=== PATIENT | female | born 1985 | race Caucasian/White ===

== ENCOUNTER 2016-05-29 13:11 | Emergency (ER) | payer OTHER ==
--- NOTE | 2016-05-29 14:10 | UC ---
Respiratory Complaint HPI - HPI Summary HPI Summary: 31 year old female presents with post-nasal drip, cough with green mucus, SOB on exertion, bronchospasm induced by coughing, low-grade temperature increase of 99F which is controlled with Tylenol. Denies rash, and wheezing. Reports chest tightness. Hx of asthma. - History of Current Complaint Chief Complaint: UCRespiratory Stated Complaint: THROAT,EARS Time Seen by Provider: 05/29/16 13:29 Hx Obtained From: Patient Hx Last Menstrual Period: 05/08/16 ?: No Onset/Duration: Gradual Onset Timing: Intermittent Episodes Severity Initially: Mild Character: Sputum Description: - Green mucus production Aggravating Factors: Deep Breaths Alleviating Factors: Bronchodilator Associated Signs And Symptoms: Positive: Fever, Chills, URI, Nasal Congestion, Sinus Discomfort Related History: Seasonal Allergies - Risk Factors Pulmonary Embolism Risk Factors: Negative Cardiac Risk Factors: Negative Pseudomonas Risk Factors: Negative Tuberculosis Risk Factors: Negative - Allergies/Home Medications Allergies/Adverse Reactions: Allergies Allergy/AdvReac Type Severity Reaction Status Date / Time Bee Venom Allergy Swelling Verified 05/29/16 13:30 Home Medications: Home Medications DULoxetine DR CAP* [Cymbalta CAP*] 60 mg PO DAILY 05/29/16 [History Confirmed ] Linaclotide (NF) [Linzess (NF)] 290 mcg PO EVERY OTHER DAY 05/29/16 [History Confirmed 05/29/16] Linaclotide [Linzess] 145 mcg PO EVERY OTHER DAY 05/29/16 [History Confirmed 11/07] PMH/Surg Hx/FS Hx/Imm Hx Previously Healthy: Yes Endocrine History Of: 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 Tonsillectomy, wisdom teeth. Thyroidectomies. 2 vaginal delivery. LYMPH NODE REMOVAL LEFT JAW. CYST REMOVED FROM LEFT ELBOW. TONSILAR REMNANT REMOVED--2016. CYST REMOVED FROM FINGER 3L - Family History Known Family History: Positive: Hypertension - Social History Occupation: Unemployed Lives: With Family Alcohol Use: Occasionally Substance Use Type: None Smoking Status (MU): Never Smoked Tobacco Have You Smoked in the Last Year: No - Immunization History Most Recent Influenza Vaccination: 06/2014 Review of Systems Constitutional: Fever, Chills, Fatigue Skin: Negative Eyes: Negative ENT: Ear Ache, Nasal Discharge Respiratory: Shortness Of Breath, Cough Cardiovascular: Negative Gastrointestinal: Negative Genitourinary: Negative Motor: Negative Neurovascular: Negative Musculoskeletal: Arthralgia - Chronic condition Neurological: Negative Psychological: Negative All Other Systems Reviewed And Are Negative: Yes Physical Exam Triage Information Reviewed: Yes Appearance: Well-Appearing Vital Signs: Initial Vital Signs Temp 99 F 05/29/16 13:24 Pulse 69 05/29/16 13:24 Resp 16 05/29/16 13:24 BP 112/66 05/29/16 13:24 Pulse Ox 100 05/29/16 13:24 Vital Signs Reviewed: Yes Eye Exam: Normal Eyes: Positive: Conjunctiva Clear ENT Exam: Normal ENT: Positive: Other: - Left TM retracted Dental Exam: Normal Neck exam: Normal Neck: Positive: Supple, Tenderness @ - cervical lymph nodes Respiratory: Positive: Lungs clear, Normal breath sounds, No accessory muscle use, Decreased breath sounds - Bilateral lower lobes. Negative: Wheezing Cardiovascular Exam: Normal Cardiovascular: Positive: RRR, No Murmur, Pulses Normal Abdominal Exam: Normal Abdomen Description: Positive: Nontender Bowel Sounds: Positive: Present Musculoskeletal Exam: Normal Musculoskeletal: Positive: Strength Intact Neurological Exam: Normal Neurological: Positive: Alert Psychological Exam: Normal Psychological: Positive: Normal Response To Family Skin Exam: Normal UC Diagnostic Evaluation - Laboratory O2 Sat by Pulse Oximetry: 100 Respiratory Course/Dx - Differential Dx/Diagnosis Provider Diagnoses: URI, likely viral Discharge - Discharge Plan Condition: Stable Disposition: HOME Discharge Disposition Comment: URI Prescriptions: Albuterol HFA INHALER* [Ventolin HFA Inhaler*] 1 - 2 puff INH Q6H PRN #1 mdi PRN Reason: wheeze, cough predniSONE TAB* [Deltasone TAB*] 50 mg PO DAILY #3 tab Patient Education Materials: Upper Respiratory Infection (ED) Referrals: Kranthi Gusman MD [Primary Care Provider] -
[2016-05-29 14:15] VITALS: BP 112/66
== END 2016-05-29 14:29 | disposition home or self-care (01) ==
LOC: UCCORT 13:11
DX: J06.9 Acute upper respiratory infection, unspecified (principal)
CPT/HCPCS: 99212; G0463

== ENCOUNTER 2016-06-10 15:21 | Emergency (ER) | payer OTHER ==
--- NOTE | 2016-06-10 16:04 | UC ---
UC General HPI - HPI Summary HPI Summary: Patient is feverish, congested SOB, sore throat and nasal congestion. body aches for 2 days. - History of Current Complaint Chief Complaint: UCGeneralIllness Stated Complaint: CONGESTION/CHILLS/BODY ACHES Time Seen by Provider: 06/10/16 15:46 Hx Obtained From: Patient Onset/Duration: Sudden Onset, Lasting Days Timing: Constant Onset Severity: Severe Current Severity: Severe Pain Intensity: 9 Associated Signs & Symptoms: Positive: Chest Pain, Fever, Headache, SOB, Wheezing - Allergy/Home Medications Allergies/Adverse Reactions: Allergies Allergy/AdvReac Type Severity Reaction Status Date / Time Bee Venom Allergy Swelling Verified 06/10/16 15:37 Home Medications: Home Medications Chlorpheniramine-Phenylephrine [Advil Allergy & Congestio] 1 tab PO ONCE [History Confirmed 06/10/16] PMH/Surg Hx/FS Hx/Imm Hx Previously Healthy: Yes Endocrine History Of: 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 Tonsillectomy, wisdom teeth. Thyroidectomies. 2 vaginal delivery. LYMPH NODE REMOVAL LEFT JAW. CYST REMOVED FROM FINGER 3L - Family History Known Family History: Positive: Hypertension - Social History Alcohol Use: Occasionally Substance Use Type: None Smoking Status (MU): Never Smoked Tobacco Have You Smoked in the Last Year: No - Immunization History Most Recent Influenza Vaccination: 06/2014 Review of Systems Constitutional: Fever, Chills, Fatigue Skin: Negative Eyes: Negative ENT: Sore Throat, Ear Ache, Nasal Discharge Respiratory: Shortness Of Breath, Cough Cardiovascular: Negative Gastrointestinal: Negative Genitourinary: Negative Motor: Negative Neurovascular: Negative Musculoskeletal: Myalgia Neurological: Headache Psychological: Negative All Other Systems Reviewed And Are Negative: Yes Physical Exam Triage Information Reviewed: Yes Appearance: Well-Nourished, Ill-Appearing, Pain Distress Vital Signs: Initial Vital Signs Temp 100.4 F 06/10/16 15:40 Pulse 98 06/10/16 15:40 Resp 16 06/10/16 15:40 BP 125/69 06/10/16 15:40 Pulse Ox 100 06/10/16 15:40 Vital Signs Reviewed: Yes Eye Exam: Normal Eyes: Positive: Conjunctiva Inflamed ENT Exam: Normal ENT: Positive: Pharyngeal erythema, Nasal congestion, Nasal drainage, TMs normal , Tonsillar swelling, Muffled/hoarse voice Dental Exam: Normal Neck exam: Normal Neck: Positive: Supple, Nontender, No Lymphadenopathy Respiratory Exam: Normal Respiratory: Positive: Chest non-tender, No respiratory distress, No accessory muscle use, Decreased breath sounds, Wheezing, Inspiration Cardiovascular Exam: Normal Cardiovascular: Positive: RRR, No Murmur, Pulses Normal Abdominal Exam: Normal Abdomen Description: Positive: Nontender, No Organomegaly, Soft Bowel Sounds: Positive: Present Musculoskeletal Exam: Normal Musculoskeletal: Positive: Strength Intact, ROM Intact, No Edema Neurological Exam: Normal Neurological: Positive: Alert, Muscle Tone Normal Psychological Exam: Normal Skin Exam: Normal Course/Dx - Course Course Of Treatment: hx obtained, exam performed, spacer provided to use her ventolin more effectively, flu swab obtained, prednisone prescribed. - Differential Dx - Multi-Symptom Provider Diagnoses: Bronchitis Discharge - Discharge Plan Condition: Stable Disposition: HOME Prescriptions: predniSONE TAB* [Deltasone TAB*] 50 mg PO DAILY #5 tab Patient Education Materials: Acute Bronchitis (ED) Additional Instructions: increase fluid intake, get plenty of rest ibuprofen for pain and take the medication as prescibed. COLD CARE TEA!!! to soothe your throat.
[2016-06-10 16:14] VITALS: BP 125/69
== END 2016-06-10 16:39 | disposition home or self-care (01) ==
LOC: UCCORT 15:21
DX: J40 Bronchitis, not specified as acute or chronic (principal)
CPT/HCPCS: 87502; 99212; G0463

== ENCOUNTER 2016-06-25 13:53 | Emergency (ER) | payer OTHER | END 2016-06-25 16:14 | disposition left against medical advice (07) | LOC: UCCORT 13:53 | DX: R09.81 Nasal congestion (principal); Z53.21 Procedure and treatment not carried out due to patient leaving prior to being seen by health care provider ==

== ENCOUNTER 2016-06-26 12:36 | Emergency (ER) | payer OTHER ==
[2016-06-26 14:58] VITALS: BP 104/69
--- NOTE | 2016-06-26 15:06 | UC ---
Throat Pain/Nasal [place] HPI - HPI Summary HPI Summary: complaint of sore throat nasal congestion cough that started 4 weeks ago dx with bronchitis several times has been on several courses pf prednisone once she is off prednisone symtoms return cough with purulent sputum right ear pain frequent headaches, sinus pressure in her face taking ibuprofen with minimal relief fever of 101 yesterday has been using inhaler twice a day for a week denies N/V/D , shortness of breath - History of Current Complaint Chief Complaint: UC Stated Complaint: EARS/ST/SINUS Time Seen by Provider: 06/26/16 15:00 Hx Obtained From: Patient Hx Last Menstrual Period: 06/01/16 - Allergies/Home Medications Allergies/Adverse Reactions: Allergies Allergy/AdvReac Type Severity Reaction Status Date / Time Bee Venom Allergy Swelling Verified 06/26/16 14:46 PMH/Surg Hx/FS Hx/Imm Hx Previously Healthy: Yes Endocrine History Of: Reports: Thyroid Disease Denies: Diabetes - PRE DIABETIC Cardiovascular History Of: Denies: Cardiac Disorders, Pacemaker/ICD Respiratory History Of: Reports: Asthma - SPORTS INDUCED - Surgical History Surgical History: Yes Surgery Procedure, Year, and Place: Kidney Stones Removed. Tonsillectomy,AND 2016 TONSIL REMINENT REMOVED. wisdom teeth. Thyroidectomies. 2 vaginal delivery. LYMPH NODE REMOVAL LEFT JAW. CYST REMOVED FROM FINGER -Lt MIDDLE - Family History Known Family History: Positive: Hypertension Negative: Cardiac Disease, Diabetes - Social History Occupation: Employed Full-time Lives: With Family Alcohol Use: Occasionally Substance Use Type: None Smoking Status (MU): Never Smoked Tobacco Have You Smoked in the Last Year: No - Immunization History Most Recent Influenza Vaccination: FALL 2015 Review of Systems Constitutional: Fever Skin: Negative Eyes: Negative ENT: Sore Throat, Nasal Discharge Respiratory: Cough Cardiovascular: Negative Gastrointestinal: Negative Genitourinary: Negative Motor: Negative Neurovascular: Negative Musculoskeletal: Negative Neurological: Negative Psychological: Negative All Other Systems Reviewed And Are Negative: Yes Physical Exam Triage Information Reviewed: Yes Appearance: No Pain Distress, Well-Nourished Vital Signs: Initial Vital Signs Temp 98.4 F 06/26/16 14:50 Pulse 68 06/26/16 14:50 Resp 18 06/26/16 14:50 BP 104/69 06/26/16 14:50 Pulse Ox 96 06/26/16 14:50 Vital Signs Reviewed: Yes Eyes: Positive: Conjunctiva Clear ENT: Positive: Pharyngeal erythema, Nasal congestion, Nasal drainage, TMs normal , Other: - frontal sinus tenderness Neck: Positive: No Lymphadenopathy Respiratory: Positive: No respiratory distress, No accessory muscle use, Rhonchi - rhonchi LLL, Wheezing Cardiovascular: Positive: RRR, No Murmur, Pulses Normal Abdomen Description: Positive: Nontender, Soft Bowel Sounds: Positive: Present Musculoskeletal: Positive: No Edema Neurological: Positive: Alert Psychological Exam: Normal Skin Exam: Normal Throat Pain/Nasal Course/Dx - Course Course Of Treatment: exam completed. will treat with zpack and prednisone - followup with PCP - Differential Dx/Diagnosis Differential Diagnosis/HQI/PQRI: Pharyngitis, Sinusitis, URI, Other - asthma exacerbation Provider Diagnoses: asthma exacerbation Discharge - Discharge Plan Condition: Stable Disposition: HOME Prescriptions: Azithromycin TAB* [Zithromax TAB (Z-TAMMY) 250 mg #6 tabs] 2 tab PO .TODAY, THEN 1 DAILY #1 tammy predniSONE TAB* [Deltasone TAB*] 50 mg PO DAILY #5 tab Patient Education Materials: Asthma (ED) Referrals: Kranthi Gusman MD [Primary Care Provider] - Additional Instructions: Please take antibiotic as directed Use your albuterol inhaler every 4-6 hours when needed for wheezing, shortness of breath or uncontrolled coughing. Increase fluids and rest Take acetaminophen or ibuprofen for fever or pain Please review your discharge instructions. If your symptoms do not improve please call your primary care provider or return to urgent care.
== END 2016-06-26 15:28 | disposition home or self-care (01) ==
LOC: UCCORT 12:36
DX: J45.901 Unspecified asthma with (acute) exacerbation (principal); H92.01 Otalgia, right ear; R51 Headache; E07.9 Disorder of thyroid, unspecified; J45.990 Exercise induced bronchospasm; Z91.030 Bee allergy status
CPT/HCPCS: 99212; G0463

== ENCOUNTER → 2016-07-03 10:43 | Day surgery (SDC) | payer OTHER ==
--- NOTE | 2016-07-01 18:07 | HP ---
PREOPERATIVE HISTORY AND PHYSICAL: DATE OF OFFICE VISIT/ENCOUNTER: 07/01/16 DATE OF SURGERY/ADMISSION: 07/03/16 [facility] ATTENDING SURGEON: Lo Rivera MD PROCEDURE: Excision mass, left ring finger. CHIEF COMPLAINT: Mass, left ring finger. HISTORY OF PRESENT ILLNESS: This is a 31-year-old female who has a painful mass on the volar aspect of her left ring finger at her MP flexion crease. It has been present for several months. She has a history of having one of these removed from her left middle finger many years ago by Dr. Meek. She has had an MRI recently that showed a ganglion cyst on her left ring finger flexor tendon sheath. 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 She denies any numbness or tingling associated with it. She denies injury to this finger. She would like to have the cyst surgically excised. PAST MEDICAL HISTORY: 1. Prediabetes. 2. Asthma. 3. Hypermobility syndrome. 4. History of thyroid cancer/Rena disease. PAST SURGICAL HISTORY: 1. Thyroidectomy. 2. Kidney stone removal. 3. Tonsillectomy. 4. [place] teeth extraction. 5. Excision of cyst, left middle finger. 6. Excision of cyst, jaw. CURRENT MEDICATIONS: 1. Duloxetine HCl 60 mg daily. 2. Gabapentin 100 mg daily. 3. Linzess 290 mcg daily. 4. Magnesium 400 mg daily. 5. [place]-3 1000 mg b.i.d. 6. ProAir inhaler 2 puffs q.4 hours p.r.n. 7. Probiotic daily. 8. Tirosint 137 mcg daily. 9. Vitamin B12, 112 mcg daily. 10. Vitamin D3 5000 units daily. ALLERGIES: ADHESIVE TAPE. FAMILY MEDICAL HISTORY: Diabetes, skin cancer. SOCIAL HISTORY: The patient is a lxed-gf-teiy mom with 2 young children. She denies tobacco use. She denies recreational drug use. She does admit to alcohol use on occasion. REVIEW OF SYSTEMS: General: Negative for fevers, chills, or night sweats. No known anesthesia problems. HEENT: Negative for headaches, lightheadedness, or syncopal episodes. Integumentary: Negative for abrasions, lesions, or open wounds. Cardiothoracic: Negative for chest pain, palpitations, or edema. Negative for hypertension. Pulmonary: Negative for shortness of breath with exertion, chronic cough, or COPD. Positive for asthma. GI: Negative for nausea, vomiting, diarrhea, constipation, or GERD. : Negative for nocturia, urinary frequency, urgency, history of UTIs, or kidney problems. Musculoskeletal: Positive for current complaint. Negative for chronic or intermittent back pain or history of fractures. Positive for hypermobility syndrome. Neurological: Negative for paresthesias, numbness, history of seizure , stroke, or epilepsy. Endocrine: Positive for history of thyroid cancer with some thyroidectomy. Positive for prediabetes. Hematologic: Negative for easy bruising, anemia, excessive bleeding, or DVT. Infectious Disease: Negative for history of MRSA, hepatitis C, or HIV. PHYSICAL EXAMINATION GENERAL: A well-developed, well-nourished 31-year-old female, in no acute distress. VITAL SIGNS: Height 5 feet 1-3/4 inches, weight 134 pounds, pulse rate 80, and blood pressure 102/80. HEENT: Normocephalic, atraumatic. Pupils are equal, round, reactive to light and accommodation. Extraocular movements are intact. NECK: Supple. No palpable lymph nodes. Throat is clear. PULMONARY: Lungs are clear to auscultation bilaterally. No wheezes, rales, or rhonchi. CARDIOTHORACIC: Regular rate and rhythm. S1, S2. No murmurs, rubs, or gallops. No edema. ABDOMEN: Positive bowel sounds, soft, nontender. NEUROLOGICAL: Alert and oriented x3. Cranial nerves II through XII are intact. Sensation is intact to light touch. MUSCULOSKELETAL: On exam of the left ring finger, she has a firm, subcutaneous mobile mass just proximal to the MP flexion crease. She is tender to palpation. She has full extension and flexion of the finger and intact neurovascular function. She has a well-healed scar in a similar area on the middle finger. DIAGNOSTIC STUDIES/IMAGING: MRI of the left hand shows a very small ganglion cyst emanating from the flexor tendon sheath of the left ring finger. IMPRESSION: Left ring finger flexor tendon ganglion cyst. PLAN/RECOMMENDATIONS: The patient is scheduled to undergo an excision of mass, left ring finger with Dr. Rivera on 07/03/16. She will return to the office in 10 to 14 days postop for followup and suture removal. A prescription for [place] was e- scribed to the patient's pharmacy for postoperative pain management. ANGI DICKINSON [id number]/[facility] #: [id number] MTDEros
[~2016-07-03 10:43] MED LIST: Buffered Lidocaine 1% SYR 3ML* 3 ML/SYR SYRINGE INTRADERM ONE; Buffered Lidocaine 1% SYR 3ML* 3 ML/SYR SYRINGE ONE; Lidocaine 1% INJ* 10 MG/ML 30 ML SDV ONE; Lidocaine 2% PF * 5 ML VIAL ONE; Propofol* 10 MG/ML 20 ML BTL IV PUSH ONE
[2016-07-03 13:30] VITALS: BP 121/74
--- NOTE | 2016-07-05 06:24 | OP ---
DATE OF OPERATION: 07/03/16 - [facility] DATE OF : 85 SURGEON: Lo Rivera MD [employer]BI[employer]LECT[employer] INSTALLER: ANGI Baron ANESTHESIOLOGIST: Vic Hilton DO ANESTHESIA: Local MAC. PRE-OP DIAGNOSIS: Left ring finger mass. POST-OP DIAGNOSIS: Left ring finger mass. OPERATIVE PROCEDURE: Removal of left ring finger mass. ESTIMATED BLOOD LOSS: Zero. TOURNIQUET TIME: Five minutes. INDICATION FOR PROCEDURE: Jillian is a 31-year-old female with a painful mass at the MP flexion crease of her left ring finger. She presents for removal. DESCRIPTION OF PROCEDURE: The patient was brought to the operating room, was given a sedation anesthetic, and a local infiltration of 10 cc of 1% plain lidocaine in the palm of her left hand. The skin of her left hand and forearm was prepped and draped in the usual sterile fashion. The hand and forearm were exsanguinated and tourniquet elevated to 250 mmHg. A transverse incision was made centered over the mass at the MP flexion crease. We dissected bluntly through the subcutaneous tissue down to the flexor tendon sheath. The digital neurovascular bundles were retracted. The mass was removed along with a small portion of the flexor tendon sheath and it was sent for pathology. The wound was irrigated and skin edges were reapproximated with 4-0 nylon suture. The wound was dressed with Xeroform, 4x4, Webril, and Coban. The patient tolerated the procedure well and was brought to the recovery room in good condition. [id number]/[facility] #: [id number] MTDD
== END | disposition home or self-care (01) ==
LOC: OREAST 10:43
PROVIDERS: ATTEND Orthopaedic Surgery
DX: M67.442 Ganglion, left hand (principal); R73.03 Prediabetes; E03.9 Hypothyroidism, unspecified; J45.909 Unspecified asthma, uncomplicated
CPT/HCPCS: 88305; J2704

== ENCOUNTER 2017-01-11 18:18 | Emergency (ER) | payer OTHER ==
[2017-01-11 18:28] VITALS: BP 129/84
--- NOTE | 2017-01-11 18:50 | UC ---
Respiratory Complaint HPI - HPI Summary HPI Summary: cough, chest tightness, post nasal drip, bilat maxillary sinus tenderness for 7 days. Has hx asthma was started on bid Advair 2 months ago but still feels chest tightness. No fever. - History of Current Complaint Chief Complaint: UCGeneralIllness Stated Complaint: COUGH Time Seen by Provider: 01/11/17 18:49 Hx Obtained From: Patient Hx Last Menstrual Period: WK OF 01/04/17 ?: No Onset/Duration: Gradual Onset, Lasting Days, Still Present Timing: Constant Severity Initially: Moderate Severity Currently: Moderate Pain Intensity: 1 Pain Scale Used: 0-10 Numeric Character: Cough: Nonproductive Aggravating Factors: Exertion Alleviating Factors: Nothing Associated Signs And Symptoms: Positive: Dyspnea, Wheezing, Nasal Congestion, Sinus Discomfort. Negative: Fever, Calf Pain, Calf Swelling Related History: Similar Episode/Dx as: - bronchitis - Allergies/Home Medications Allergies/Adverse Reactions: Allergies Allergy/AdvReac Type Severity Reaction Status Date / Time Bee Venom Allergy Severe Swelling Verified 01/11/17 18:28 Adhesive Tape Allergy Intermediate SMALL RASH Verified 01/11/17 18:28 AROUND TAPE Home Medications: Home Medications Cetirizine* [ZyrTEC 10 MG TAB*] 10 mg PO DAILY 01/11/17 [History Confirmed 01/11] Diphenhydramine-Phenylephrine- [Delsym Cough + Cold Night 12.5-5-325 mg/10Ml] 1 liq PO BEDTIME PRN 01/11/17 [History Confirmed 01/11/17] Fluticasone-Salmeterol 100-50* [Advair Diskus 100-50*] 1 puff INH BID 01/11/17 [ History Confirmed 01/11/17] Probiotic Product [Probiotic Daily] 1 cap PO DAILY 01/11/17 [History Confirmed 01/11/17] PMH/Surg Hx/FS Hx/Imm Hx Previously Healthy: No - Rena's, prediabetes Respiratory History: Asthma - Surgical History Surgical History: Yes Surgery Procedure, Year, and Place: Kidney Stones Removed. Tonsillectomy,AND 2016 TONSIL REMINENT REMOVED. wisdom teeth. Thyroidectomies and removal of 3 out of 4 parathyroid glands. 2 vaginal delivery. LYMPH NODE REMOVAL LEFT JAW. CYST REMOVED FROM FINGER -Lt MIDDLE ADN LEFT RING FINGER - Family History Known Family History: Positive: Hypertension Negative: Cardiac Disease, Diabetes - Social History Occupation: Employed Full-time Lives: With Family Alcohol Use: Occasionally Substance Use Type: None Smoking Status (MU): Never Smoked Tobacco Have You Smoked in the Last Year: No - Immunization History Most Recent Influenza Vaccination: FALL 2015 Review of Systems Constitutional: Negative Skin: Negative ENT: Sinus Congestion, Sinus Pain/Tenderness Respiratory: Cough Cardiovascular: Negative Gastrointestinal: Negative Genitourinary: Negative Motor: Negative Neurovascular: Negative Musculoskeletal: Negative Neurological: Negative Psychological: Negative All Other Systems Reviewed And Are Negative: Yes Physical Exam Triage Information Reviewed: Yes Appearance: Well-Nourished, Ill-Appearing, Pain Distress Vital Signs: Initial Vital Signs Temp 99 F 01/11/17 18:19 Pulse 64 01/11/17 18:19 Resp 18 01/11/17 18:19 BP 129/84 01/11/17 18:19 Pulse Ox 100 01/11/17 18:19 Vital Signs Reviewed: Yes Eyes: Positive: Conjunctiva Clear ENT: Positive: Hearing grossly normal, Pharyngeal erythema, Nasal congestion, TMs normal. Negative: Tonsillar swelling, Tonsillar exudate Neck: Positive: Supple, Nontender, No Lymphadenopathy Respiratory: Positive: Lungs clear, No respiratory distress, Decreased breath sounds. Negative: Accessory muscle use, Crackles, Rhonchi, Wheezing Cardiovascular: Positive: RRR, No Murmur, Pulses Normal, Brisk Capillary Refill Musculoskeletal: Positive: Strength Intact, ROM Intact Neurological: Positive: Alert, Muscle Tone Normal Psychological Exam: Normal Skin Exam: Normal UC Diagnostic Evaluation - Laboratory O2 Sat by Pulse Oximetry: 100 Re-Evaluation - Re-Evaluation First Eval Re-Evaluation Time: 19:30 Change: Improved - increased aeration after albuterol. Respiratory Course/Dx - Course Course Of Treatment: given albuterol neb treatment with improvement - Differential Dx/Diagnosis Differential Diagnosis/HQI/PQRI: Asthma, Bronchitis, Lower Resp Infection, Sinusitis Provider Diagnoses: acute sinusitis. bronchospasm Discharge - Discharge Plan Condition: Stable Disposition: HOME Prescriptions: Azithromycin TAB* [Zithromax TAB (Z-TAMMY) 250 mg #6 tabs] 2 tab PO .TODAY, THEN 1 DAILY #1 tammy predniSONE TAB* [Deltasone TAB*] 40 mg PO DAILY #10 tab Patient Education Materials: Sinusitis (ED), Bronchospasm (ED) Referrals: Kranthi Gusman MD [Primary Care Provider] - 5 Days (keep your appointment for next week. ) Additional Instructions: You were given an albuterol neb at 7:00pm. You may use your rescue inhaler ( albuterol) as directed if you have trouble breathing, or chest tightness. Continue your advair twice a day as directed. You may also continue the Delsym at night. You may start the azithromycin tonight. (with food). If you want to start the prednisone in the morning, because it gives you energy , and keeps some people awake, you may wait to start it in the morning. However , if you feel short of breath or chest tightness, you may start the prednisone tonight also (with food). Return to urgent care or go to the emergency room if any new or worsening symptoms. Keep your appointment with your doctor next week.
[2017-01-11] MEDS ORDERED: Albuterol 2.5 MG/3 ML NEB.SOL* (0.083%) INH ONE (19:01)
== END 2017-01-11 19:38 | disposition home or self-care (01) ==
LOC: UCCORT 18:18
DX: J01.90 Acute sinusitis, unspecified (principal); J98.01 Acute bronchospasm; E06.3 Autoimmune thyroiditis; R73.03 Prediabetes; J45.909 Unspecified asthma, uncomplicated; Z91.030 Bee allergy status; Z91.048 Other nonmedicinal substance allergy status
CPT/HCPCS: 99212; G0463

== ENCOUNTER 2017-03-04 16:34 | Emergency (ER) | payer OTHER ==
[2017-03-04 17:49] VITALS: BP 115/67
--- NOTE | 2017-03-04 19:51 | UC ---
Throat Pain/Nasal Eagle HPI - HPI Summary HPI Summary: SINUS PRESSURE AND CONGESTION FOR ONE WEEK. CHILLS. COUGH - History of Current Complaint Chief Complaint: UCGeneralIllness Stated Complaint: FEVER,SINUSES Time Seen by Provider: 03/04/17 17:43 Hx Obtained From: Patient Hx Last Menstrual Period: 03/04/17 Onset/Duration: Gradual Onset, Lasting Weeks, Still Present Severity: Moderate Pain Intensity: 1 Pain Scale Used: 0-10 Numeric Cough: Nonproductive Associated Signs & Symptoms: Positive: Hoarseness, Sinus Discomfort, Nasal Discharge - Epiglottits Risk Factors Epiglottis Risk Factors: Negative - Allergies/Home Medications Allergies/Adverse Reactions: Allergies Allergy/AdvReac Type Severity Reaction Status Date / Time Bee Venom Allergy Severe Swelling Verified 03/04/17 17:42 Adhesive Tape Allergy Intermediate SMALL RASH Verified 03/04/17 17:42 AROUND TAPE Home Medications: Home Medications Diphenhydramine-Phenylephrine- [Delsym Cough + Cold Night 12.5-5-325 mg/10Ml] 1 liq PO BEDTIME PRN 03/04/17 [History Confirmed 03/04/17] PMH/Surg Hx/FS Hx/Imm Hx Previously Healthy: Yes - Surgical History Surgical History: Yes Surgery Procedure, Year, and Place: Kidney Stones Removed. Tonsillectomy,AND 2016 TONSIL REMINENT REMOVED. wisdom teeth. Thyroidectomies and removal of 3 out of 4 parathyroid glands. LYMPH NODE REMOVAL LEFT JAW. CYST REMOVED FROM FINGER -Lt MIDDLE ADN LEFT RING FINGER - Family History Known Family History: Positive: Hypertension Negative: Cardiac Disease, Diabetes, Respiratory Disease - Social History Occupation: Employed Full-time Lives: With Family Alcohol Use: Occasionally Substance Use Type: None Smoking Status (MU): Never Smoked Tobacco Have You Smoked in the Last Year: No - Immunization History Most Recent Influenza Vaccination: FALL 2015 Review of Systems Constitutional: Chills Skin: Negative Eyes: Negative ENT: Nasal Discharge, Sinus Congestion, Sinus Pain/Tenderness Respiratory: Cough Cardiovascular: Negative Gastrointestinal: Negative Genitourinary: Negative Motor: Negative Neurovascular: Negative Musculoskeletal: Negative Neurological: Negative Psychological: Negative Is Patient Immunocompromised?: No All Other Systems Reviewed And Are Negative: Yes Physical Exam Triage Information Reviewed: Yes Appearance: No Pain Distress, Well-Nourished, Ill-Appearing Vital Signs: Initial Vital Signs Temp 99.1 F 03/04/17 17:44 Pulse 63 03/04/17 17:44 Resp 16 03/04/17 17:44 BP 115/67 03/04/17 17:44 Pulse Ox 100 03/04/17 17:44 Vital Signs Reviewed: Yes Eye Exam: Normal ENT: Positive: Hearing grossly normal, Nasal congestion, TM bulging, TM dull Dental Exam: Normal Neck exam: Normal Neck: Positive: Supple, Nontender, No Lymphadenopathy Respiratory Exam: Other - COUGH Respiratory: Positive: Chest non-tender, Lungs clear, Normal breath sounds, No respiratory distress, No accessory muscle use Cardiovascular Exam: Normal Cardiovascular: Positive: RRR, No Murmur, Pulses Normal, Brisk Capillary Refill Abdominal Exam: Normal Musculoskeletal Exam: Normal Musculoskeletal: Positive: Strength Intact, ROM Intact Neurological Exam: Normal Psychological Exam: Normal Skin Exam: Normal Throat Pain/Nasal Course/Dx - Differential Dx/Diagnosis Differential Diagnosis/HQI/PQRI: Otitis Media, Pharyngitis, Sinusitis, URI Provider Diagnoses: SINUSITIS Discharge - Discharge Plan Condition: Stable Disposition: HOME Prescriptions: Azithromycin TAB* [Zithromax TAB (Z-TAMMY) 250 mg #6 tabs] 250 mg PO DAILY #6 tab Benzonatate CAP* [Tessalon 100 MG CAP*] 100 mg PO TID PRN #15 cap PRN Reason: Cough Patient Education Materials: Sinusitis (ED), Laryngitis (ED) Referrals: Kranthi Gusman MD [Primary Care Provider] -
== END 2017-03-04 18:07 | disposition home or self-care (01) ==
LOC: UCCORT 16:34
DX: J32.9 Chronic sinusitis, unspecified (principal)
CPT/HCPCS: 99212; G0463

== ENCOUNTER 2017-04-24 15:04 | Emergency (ER) | payer OTHER ==
[2017-04-24 17:35] VITALS: BP 122/69
--- NOTE | 2017-04-24 18:02 | UC ---
Throat Pain/Nasal Eagle HPI - HPI Summary HPI Summary: one week of worsening sinus pain headache chills and fatigue - History of Current Complaint Chief Complaint: UCGeneralIllness Stated Complaint: HEADACHE,SORE THROAT,CONGESTION Time Seen by Provider: 04/24/17 17:54 Hx Obtained From: Patient Hx Last Menstrual Period: 03/29/17 ?: No Onset/Duration: Sudden Onset, Lasting Days - 7, Still Present Severity: Moderate Cough: None Associated Signs & Symptoms: Positive: Sinus Discomfort, Nasal Discharge, Fever - Allergies/Home Medications Allergies/Adverse Reactions: Allergies Allergy/AdvReac Type Severity Reaction Status Date / Time Bee Venom Allergy Severe Swelling Verified 04/24/17 17:35 Adhesive Tape Allergy Intermediate SMALL RASH Verified 04/24/17 17:35 AROUND TAPE PMH/Surg Hx/FS Hx/Imm Hx Previously Healthy: No GI/ History: Other Other GI/ History: IBS Psychological History: Depression - Surgical History Surgical History: Yes Surgery Procedure, Year, and Place: Kidney Stones Removed. Tonsillectomy,AND 2016 TONSIL REMINENT REMOVED. wisdom teeth. Thyroidectomies and removal of 3 out of 4 parathyroid glands. LYMPH NODE REMOVAL LEFT JAW. CYST REMOVED FROM FINGER -Lt MIDDLE ADN LEFT RING FINGER - Family History Known Family History: Positive: Hypertension Negative: Cardiac Disease, Diabetes, Respiratory Disease - Social History Occupation: Employed Full-time Lives: With Family Alcohol Use: Occasionally Substance Use Type: None Smoking Status (MU): Never Smoked Tobacco Have You Smoked in the Last Year: No - Immunization History Most Recent Influenza Vaccination: FALL 2015 Review of Systems Constitutional: Chills, Fatigue Skin: Negative Eyes: Negative ENT: Sore Throat, Ear Ache, Nasal Discharge, Sinus Congestion, Sinus Pain/ Tenderness Respiratory: Negative Cardiovascular: Negative Gastrointestinal: Negative Genitourinary: Negative Motor: Negative Neurovascular: Negative Musculoskeletal: Negative Neurological: Headache Psychological: Negative Is Patient Immunocompromised?: No All Other Systems Reviewed And Are Negative: Yes Physical Exam Triage Information Reviewed: Yes Appearance: Well-Nourished, Ill-Appearing, Pain Distress Vital Signs: Initial Vital Signs Temp 99.0 F 04/24/17 17:30 Pulse 75 04/24/17 17:30 Resp 16 04/24/17 17:30 BP 122/69 04/24/17 17:30 Pulse Ox 100 04/24/17 17:30 Vital Signs Reviewed: Yes Eye Exam: Normal Eyes: Positive: Conjunctiva Clear ENT Exam: Normal ENT: Positive: Normal ENT inspection, Hearing grossly normal, Pharynx normal, Nasal congestion, TMs normal, Sinus tenderness, Uvula midline. Negative: Nasal drainage, Tonsillar swelling, Tonsillar exudate, Trismus, Muffled voice, Hoarse voice, Dental tenderness Dental Exam: Normal Neck exam: Normal Neck: Positive: Supple, Nontender, No Lymphadenopathy Respiratory Exam: Normal Respiratory: Positive: Chest non-tender, Lungs clear, Normal breath sounds, No respiratory distress, No accessory muscle use Cardiovascular Exam: Normal Cardiovascular: Positive: RRR, No Murmur, Pulses Normal, Brisk Capillary Refill Musculoskeletal Exam: Normal Musculoskeletal: Positive: Strength Intact, ROM Intact, No Edema Neurological Exam: Normal Neurological: Positive: Alert, Muscle Tone Normal Psychological Exam: Normal Skin Exam: Normal Throat Pain/Nasal Course/Dx - Course Assessment/Plan: flonase, augmentin, increase fluids, otc sinus medicine for symptom relief, follow with pcp prn - Differential Dx/Diagnosis Provider Diagnoses: Acute sinusitis Discharge - Discharge Plan Condition: Stable Disposition: HOME Prescriptions: Amoxicillin/Clavulanate SUSP* [Augmentin SUSP*] 800 mg PO Q12H #200 ml Fluticasone NASAL SPRAY 50MCG* [Flonase NASAL SPRAY 50MCG*] 2 spray BOTH NARES DAILY #1 btl Patient Education Materials: Sinusitis (ED), How to Use Nasal [place] (ED) Referrals: Kranthi Gusman MD [Primary Care Provider] - If Needed
== END 2017-04-24 18:22 | disposition home or self-care (01) ==
LOC: UCCORT 15:04
DX: J01.90 Acute sinusitis, unspecified (principal); R53.83 Other fatigue; K58.9 Irritable bowel syndrome, unspecified; F32.9 Major depressive disorder, single episode, unspecified
CPT/HCPCS: 99212; G0463

== ENCOUNTER 2018-03-01 06:08 | Day surgery (SDC) | payer OTHER ==
[~2018-03-01 06:08] MED LIST changes: +Buffered Lidocaine 0.9% SYRIN* 5 ML/SYR SYRINGE INTRADERM ONE; -Buffered Lidocaine 1% SYR 3ML* 3 ML/SYR SYRINGE INTRADERM ONE; -Buffered Lidocaine 1% SYR 3ML* 3 ML/SYR SYRINGE ONE; +Dexamethasone IV* 4 MG/ML 1 ML (4 MG) IV SLOW PU ONE; +Famotidine IV* 10 MG/ML 2 ML (20 mg) IV ONE; -Lidocaine 1% INJ* 10 MG/ML 30 ML SDV ONE; -Lidocaine 2% PF * 5 ML VIAL ONE; -Propofol* 10 MG/ML 20 ML BTL IV PUSH ONE
[2018-03-01] MEDS ORDERED: Ondansetron INJ* 2 MG/ML VIAL ONE (06:14)
[2018-03-01] MEDS ORDERED: Dexamethasone IV* 4 MG/ML 1 ML (4 MG) ONE (06:14)
[2018-03-01] MEDS ORDERED: ceFAZolin 2 GM in NS PREMIX(*) 2 GM/100 ML BAG IVPB ONE (06:15)
[2018-03-01] MEDS ORDERED: Scopolamine 1.5 mg* PATCH ONE (06:15)
[2018-03-01] MEDS ORDERED: Famotidine IV* 10 MG/ML 2 ML (20 mg) ONE (06:58)
[2018-03-01] MEDS ORDERED: fentaNYL* 50 MCG/ML 2 ML VIAL (100 MCG VIAL) ONE (07:08)
[2018-03-01] MEDS ORDERED: Midazolam* 1 MG/ML 5 ML VIAL (5 MG) ONE (07:09)
[2018-03-01] MEDS ORDERED: Bupivacaine 0.25% SDV* 30 ML ONE (07:14)
[2018-03-01] MEDS ORDERED: Naloxone* 0.4 MG/ML 1 ML VIAL IV PRN (07:19)
[2018-03-01] MEDS ORDERED: DiMENhydriNATE IV* 50 MG/ML VIAL IV PUSH PRN (07:19)
[2018-03-01] MEDS ORDERED: Ondansetron INJ* 2 MG/ML VIAL IV PRN (07:19)
[2018-03-01] MEDS ORDERED: Propofol* 10 MG/ML 20 ML BTL IV PUSH ONE ×2 (07:53)
[2018-03-01] MEDS ORDERED: Ketorolac INJ* 30 MG/ML 1 ML VIAL ONE (07:53)
[2018-03-01 08:59] VITALS: BP 121/74
== END 2018-03-01 09:02 | disposition home or self-care (01) ==
LOC: OR 06:08
PROVIDERS: ATTEND Plastic Surgery
DX: G56.01 Carpal tunnel syndrome, right upper limb (principal); M67.441 Ganglion, right hand; J45.909 Unspecified asthma, uncomplicated; E03.9 Hypothyroidism, unspecified
CPT/HCPCS: 81025; 88304; A9270-GY; J0690; J1100; J1885; J2250; J2405; J2704; J3010

== ENCOUNTER 2018-03-21 16:11 | Emergency (ER) | payer OTHER ==
[2018-03-21 17:36] VITALS: BP 135/85
--- NOTE | 2018-03-21 17:50 | ED ---
Throat Pain/Nasal Congestion - HPI Summary HPI Summary: 32 yr old female with persistent cough and cold symptoms, initially in her sinuses, and now she has laryngitis, coughing. She finished Augmentin with little change. She has asthma and has increased coughing episodes. Positive sputum production. She has no other complaints. - History of Current Complaint Chief Complaint: UCRespiratory Time Seen by Provider: 03/21/18 17:38 - Allergies/Home Medications Allergies/Adverse Reactions: Allergies Allergy/AdvReac Type Severity Reaction Status Date / Time Adhesive Tape Allergy Intermediate SMALL RASH Verified 03/21/18 17:26 AROUND TAPE BEES Allergy Swelling Uncoded 03/21/18 17:26 ENVIRONMENTAL Allergy Unknown Uncoded 03/21/18 17:26 Reaction Details PMH/Surg Hx/FS Hx/Imm Hx Endocrine/Hematology History: Reports: Hx Diabetes - PRE DIABETIC-NO MEDICATION FOR, Hx Thyroid Disease - nadia, thyroid cancer-HAD SURGERY FOR- ON MEDICATION FOR Cardiovascular History: Denies: Hx Pacemaker/ICD Respiratory History: Reports: Hx Asthma - ROUTINE AND PRN INHALER GI History: Reports: Hx Irritable Bowel - STATES OCCASIONALLY USES LINZESS History: Reports: Hx Kidney Infection - 2004, Hx Kidney Stones - 2004 Sensory History: Reports: Hx Contacts or Glasses - glasses Denies: Hx Hearing Aid Opthamlomology History: Reports: Hx Contacts or Glasses - glasses Psychiatric History: Reports: Hx Anxiety - ON MEDICATION FOR, Hx Depression - ON MEDICATION FOR Denies: Hx Panic Disorder - Cancer History Cancer Type, Location and Year: THYROID, precancerous cells skin (stomach) 2016 Hx Chemotherapy: Yes - and radiation Hx Radiation Therapy: No - IUI - Surgical History Surgery Procedure, Year, and Place: Kidney Stones Removed. Tonsillectomy,AND 2016 TONSIL REMINENT REMOVED. wisdom teeth. ThyroidectomY and removal of 3 out of 4 parathyroid glands. LYMPH NODE REMOVAL LEFT JAW. CYST REMOVED FROM FINGER -Lt MIDDLE AND LEFT RING FINGER. RIGHT CTR, AND CYST REMOVAL RIGHT MID FINGER Hx Anesthesia Reactions: Yes - EXTREME NAUSEA//GENERAL ANESTHESIA- BODY PAIN AFTER-BACK AND NECK Infectious Disease History: Yes Infectious Disease History: Reports: Hx Shingles Denies: Traveled Outside the [place] in Last 30 Days - Family History Known Family History: Positive: Hypertension Negative: Cardiac Disease, Diabetes, Respiratory Disease - Social History Occupation: Employed Full-time Alcohol Use: Occasionally Substance Use Type: Reports: None Smoking Status (MU): Never Smoked Tobacco Have You Smoked in the Last Year: No Review of Systems Constitutional: Negative Positive: Sore Throat, Ear Ache, Nasal Discharge Positive: Cough All Other Systems Reviewed And Are Negative: Yes Physical Exam Triage Information Reviewed: Yes Vital Signs On Initial Exam: Initial Vitals Temp Pulse Resp BP Pulse Ox 98.7 F 74 18 135/85 100 03/21/18 17:28 03/21/18 17:28 03/21/18 17:28 03/21/18 17:28 03/21/18 17:28 Vital Signs Reviewed: Yes Appearance: Positive: Well-Appearing, No Pain Distress Skin: Positive: Warm, Skin Color Reflects Adequate Perfusion Head/Face: Positive: Normal Head/Face Inspection Eyes: Positive: EOMI ENT: Positive: Pharyngeal erythema, Nasal congestion, Nasal drainage, TM red - right with effusion Respiratory/Lung Sounds: Positive: Clear to Auscultation, Breath Sounds Present Cardiovascular: Positive: RRR. Negative: Murmur Abdomen Description: Positive: Nontender Musculoskeletal: Positive: Strength/ROM Intact Neurological: Positive: Sensory/Motor Intact, Alert, Oriented to Person Place, Time, CN Intact II-III Psychiatric: Positive: Normal - [place] Coma Scale Best Eye Response: 4 - Spontaneous Best Motor Response: 6 - Obeys Commands Best Verbal Response: 5 - Oriented Coma Scale Total: 15 Diagnostics - Vital Signs Vital Signs Temp Pulse Resp BP Pulse Ox 03/21/18 17:28 98.7 F 74 18 135/85 100 - Laboratory Lab Statement: Any lab studies that have been ordered have been reviewed, and results considered in the medical decision making process. EENT Course/Dx - Course Course Of Treatment: 32 yr old female with Otitis media, larygitis, and also with asthma. Plan Rx with steroids, and zithromax and also tessalon - Diagnoses Provider Diagnoses: Asthma, Otitis media, Laryngitis Discharge - Sign-Out/Discharge Documenting (check all that apply): Patient Departure All imaging exams completed and their final reports reviewed: No Studies - Discharge Plan Condition: Good Disposition: HOME Prescriptions: Azithromycin TAB* [Zithromax TAB (Z-TAMMY) 250 mg #6 tabs] 2 tab PO .TODAY, THEN 1 DAILY #1 tammy Benzonatate CAP* [Tessalon 100 MG CAP*] 100 mg PO TID #14 cap predniSONE TAB* [Deltasone 20 MG TAB*] 40 mg PO DAILY #8 tab Patient Education Materials: Asthma (ED), Laryngitis (ED), Ear Infection (ED) Referrals: Kranthi Gusman MD [Primary Care Provider] - 2 Days - Billing Disposition and Condition Condition: GOOD Disposition: Home
== END 2018-03-21 17:56 | disposition home or self-care (01) ==
LOC: UCCORT 16:11
DX: C73 Malignant neoplasm of thyroid gland (principal); J45.909 Unspecified asthma, uncomplicated; H66.91 Otitis media, unspecified, right ear; J04.0 Acute laryngitis; K58.9 Irritable bowel syndrome, unspecified; F32.9 Major depressive disorder, single episode, unspecified; F41.9 Anxiety disorder, unspecified; B02.9 Zoster without complications; Z86.39 Personal history of other endocrine, nutritional and metabolic disease; Z92.3 Personal history of irradiation; Z92.21 Personal history of antineoplastic chemotherapy; Z91.030 Bee allergy status; Z91.040 Latex allergy status
CPT/HCPCS: 99212; G0463

== ENCOUNTER 2018-05-10 06:27 | Day surgery (SDC) | payer OTHER ==
[~2018-05-10 06:27] MED LIST changes: +Dexamethasone IV* 4 MG/ML 1 ML (4 MG) ONE; +Famotidine IV* 10 MG/ML 2 ML (20 mg) ONE; +Lactated Ringers 1000 ML Bag* 1,000 ML IV SCH; +Ondansetron INJ* 2 MG/ML VIAL ONE; +Scopolamine 1.5 mg* PATCH ONE; +ceFAZolin 2 GM PREMIX in ORs 2 GM/50 ML BAG IVPB ONE
[2018-05-10] MEDS ORDERED: Ondansetron INJ* 2 MG/ML VIAL ONE (07:14)
[2018-05-10] MEDS ORDERED: Ketorolac INJ* 30 MG/ML 1 ML VIAL ONE (07:14)
[2018-05-10] MEDS ORDERED: Midazolam* 1 MG/ML 5 ML VIAL (5 MG) ONE (07:14)
[2018-05-10] MEDS ORDERED: Propofol* 10 MG/ML 20 ML BTL ONE (07:14)
[2018-05-10] MEDS ORDERED: fentaNYL* 50 MCG/ML 2 ML VIAL (100 MCG VIAL) ONE (07:14)
[2018-05-10] MEDS ORDERED: Bupivacaine 0.25% SDV PF* 10 ML VIAL INJ ONE (07:14)
[2018-05-10] MEDS ORDERED: Naloxone* 0.4 MG/ML 1 ML VIAL IV PRN (07:26)
[2018-05-10 08:49] VITALS: BP 116/68
== END 2018-05-10 09:27 | disposition home or self-care (01) ==
LOC: OR 06:27
PROVIDERS: ATTEND Plastic Surgery
DX: G56.02 Carpal tunnel syndrome, left upper limb (principal); J45.909 Unspecified asthma, uncomplicated; R73.03 Prediabetes; Z85.850 Personal history of malignant neoplasm of thyroid
CPT/HCPCS: 81025; A9270-GY; J0690; J1100; J1885; J2250; J2405; J2704; J3010; J3490

== ENCOUNTER 2018-05-19 14:12 | Emergency (ER) | payer OTHER ==
[2018-05-19 15:05] VITALS: BP 124/79
--- NOTE | 2018-05-19 16:01 | UC ---
Throat Pain/Nasal Eagle HPI - HPI Summary HPI Summary: Pt c/o gradual onset nasal congestion, bilateral ear fullness, dizziness, sinus pressure and pain , PND X "several days". Pt states she feels "out of it". - History of Current Complaint Chief Complaint: UCGeneralIllness Stated Complaint: FEVER,DIZZY,ST,RUNNY NOSE Time Seen by Provider: 05/19/18 15:54 Hx Obtained From: Patient Hx Last Menstrual Period: 05/13/18 ?: No Onset/Duration: Gradual Onset, Lasting Days, Still Present, Worse Since - onset Severity: Moderate Pain Intensity: 0 Cough: Nonproductive Associated Signs & Symptoms: Positive: Dysphagia, Sinus Discomfort - Epiglottits Risk Factors Epiglottis Risk Factors: Negative - Allergies/Home Medications Allergies/Adverse Reactions: Allergies Allergy/AdvReac Type Severity Reaction Status Date / Time gluten Allergy Severe TOURE, Verified 05/19/18 15:00 constipation, acne Adhesive Tape Allergy Intermediate SMALL RASH Verified 05/19/18 15:00 AROUND TAPE BEES Allergy Severe Swelling Uncoded 05/19/18 15:00 ENVIRONMENTAL Allergy Severe runny Uncoded 05/19/18 15:00 nose, itchy throat, ears Home Medications: Home Medications Chlorphen/Pseudoeph/Ibuprofen [Advil Allergy Sinus Caplet] 1 tab PO ONCE [History Confirmed 05/19/18] PMH/Surg Hx/FS Hx/Imm Hx Previously Healthy: Yes - Surgical History Surgical History: Yes Surgery Procedure, Year, and Place: Kidney Stones Removed. Tonsillectomy,AND 2016 TONSIL REMINENT REMOVED. wisdom teeth. Thyroidectomy and removal of 3 out of 4 parathyroid glands. LYMPH NODE REMOVAL LEFT JAW. CYST REMOVED FROM FINGER -Lt MIDDLE AND LEFT RING FINGER. RIGHT CTR, AND CYST REMOVAL RIGHT MID FINGER. bilat carpal tunnel - Family History Known Family History: Positive: Hypertension Negative: Cardiac Disease, Diabetes, Respiratory Disease - Social History Occupation: Employed Full-time Lives: With Family Alcohol Use: Occasionally Substance Use Type: None Smoking Status (MU): Never Smoked Tobacco Have You Smoked in the Last Year: No - Immunization History Most Recent Influenza Vaccination: FALL 2015 Review of Systems All Other Systems Reviewed And Are Negative: Yes Constitutional: Positive: Chills, Fatigue Skin: Positive: Negative Eyes: Positive: Negative ENT: Positive: Sore Throat, Ear Ache, Sinus Congestion, Sinus Pain/Tenderness Respiratory: Positive: Cough Cardiovascular: Positive: Negative Gastrointestinal: Positive: Negative Genitourinary: Positive: Negative Motor: Positive: Negative Neurovascular: Positive: Negative Musculoskeletal: Positive: Negative Neurological: Positive: Headache Psychological: Positive: Negative Is Patient Immunocompromised?: No Physical Exam Triage Information Reviewed: Yes Appearance: Ill-Appearing Vital Signs: Initial Vital Signs Temp 98.3 F 05/19/18 14:55 Pulse 63 05/19/18 14:55 Resp 16 05/19/18 14:55 BP 124/77 05/19/18 14:55 Pulse Ox 100 05/19/18 14:55 Vital Signs Reviewed: Yes Eye Exam: Normal ENT: Positive: Nasal congestion, Nasal drainage, TM bulging, Sinus tenderness Dental Exam: Normal Neck exam: Normal Respiratory Exam: Normal Musculoskeletal Exam: Normal Neurological Exam: Normal Psychological Exam: Normal Skin Exam: Normal Throat Pain/Nasal Course/Dx - Differential Dx/Diagnosis Differential Diagnosis/HQI/PQRI: Influenza, Otitis Media, Pharyngitis, Sinusitis , URI Provider Diagnosis: Sinusitis, Acute serous otitis media of both ears Discharge - Sign-Out/Discharge Documenting (check all that apply): Patient Departure All imaging exams completed and their final reports reviewed: No Studies - Discharge Plan Condition: Stable Disposition: HOME Prescriptions: Amoxicillin PO (*) [Amoxicillin 400 MG/5 ML SUSP*] 10 ml PO Q12H #200 ml Guaifenesin/Pseudoephedrne HCl [Mucinex D ER 600-60 mg Tablet] 1 each PO Q12H # 14 tab.er.12h Meclizine TAB* [Antivert 12.5 TAB*] 25 mg PO Q8H PRN #9 tab PRN Reason: Dizziness Patient Education Materials: Sinusitis (ED), Dizziness (ED), Serous Otitis Media (ED) Referrals: Kranthi Gusman MD [Primary Care Provider] - If Needed - Billing Disposition and Condition Condition: STABLE Disposition: Home
== END 2018-05-19 16:13 | disposition home or self-care (01) ==
LOC: UCCORT 14:12
DX: J32.9 Chronic sinusitis, unspecified (principal); H65.03 Acute serous otitis media, bilateral
CPT/HCPCS: 99212; G0463

== ENCOUNTER 2018-06-18 13:18 | Emergency (ER) | payer OTHER ==
[2018-06-18 14:38] VITALS: BP 105/72
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
== END 2018-06-18 15:16 | disposition home or self-care (01) ==
LOC: UCCORT 13:18
DX: J01.90 Acute sinusitis, unspecified (principal); J45.909 Unspecified asthma, uncomplicated; M54.5 Low back pain; R21 Rash and other nonspecific skin eruption; Z91.030 Bee allergy status; Z91.018 Allergy to other foods; Z91.09 Other allergy status, other than to drugs and biological substances
CPT/HCPCS: 99212; G0463

== ENCOUNTER 2018-06-23 14:00 | Emergency (ER) | payer OTHER ==
[2018-06-23 14:27] VITALS: BP 125/76
--- NOTE | 2018-06-23 14:55 | UC ---
Throat Pain/[place] HPI - HPI Summary HPI Summary: sore throat for approx a week. amox rx'd on 06/18 at this urgent care. pharyngitis worsening. had one episode of diarrhea yesterday. - History of Current Complaint Chief Complaint: UCRespiratory Stated Complaint: ST Time Seen by Provider: 06/23/18 14:10 Hx Obtained From: Patient Hx Last Menstrual Period: 06/13/18 Pain Intensity: 5 Pain Scale Used: 0-10 Numeric Cough: None Associated Signs & Symptoms: Positive: Dysphagia - Allergies/Home Medications Allergies/Adverse Reactions: Allergies Allergy/AdvReac Type Severity Reaction Status Date / Time gluten Allergy Severe TOURE, Verified 06/23/18 14:11 constipation, acne Adhesive Tape Allergy Intermediate SMALL RASH Verified 06/23/18 14:11 AROUND TAPE BEES Allergy Severe Swelling Uncoded 06/23/18 14:11 ENVIRONMENTAL Allergy Severe runny Uncoded 06/23/18 14:11 nose, itchy throat, ears Home Medications: Home Medications Ascorbic Acid [Vitamin C] 1 mg PO DAILY 06/23/18 [History Confirmed 06/23/18] Cholecalciferol TAB* [Vitamin D TAB*] 5,000 unit PO DAILY 06/23/18 [History Confirmed 06/23/18] Omega3/Dha/Epa/Fish Oil/Vit D3 [[place]-3 + Vitamin D3 Tab Chew] 1 each PO DAILY 06/23/18 [History Confirmed 06/23/18] Probiotic Gummi 1 tab PO QPM 06/23/18 [History] PMH/Surg Hx/FS Hx/Imm Hx Previously Healthy: Yes - Surgical History Surgical History: Yes Surgery Procedure, Year, and Place: Kidney Stones Removed. Tonsillectomy,AND 2016 TONSIL REMNENT REMOVED. wisdom teeth. Thyroidectomy and removal of 3 out of 4 parathyroid glands. LYMPH NODE REMOVAL LEFT JAW. CYST REMOVED FROM FINGER -Lt MIDDLE AND LEFT RING FINGERS. RIGHT CTR, AND CYST REMOVAL RIGHT MID FINGER. bilat carpal tunnel - Family History Known Family History: Positive: Cardiac Disease, Hypertension, Diabetes Negative: Respiratory Disease - Social History Alcohol Use: Occasionally Substance Use Type: None Smoking Status (MU): Never Smoked Tobacco Have You Smoked in the Last Year: No - Immunization History Most Recent Influenza Vaccination: FALL 2015 Review of Systems All Other Systems Reviewed And Are Negative: Yes Constitutional: Negative: Fever, Chills, Fatigue Skin: Negative: Rash ENT: Positive: Sore Throat. Negative: Ear Ache, Nasal Discharge, Sinus Congestion, Sinus Pain/Tenderness Respiratory: Positive: Negative Cardiovascular: Positive: Negative Gastrointestinal: Positive: Diarrhea - 1 episode yesterday Genitourinary: Negative: Dysuria Musculoskeletal: Negative: Myalgia Neurological: Negative: Headache, Weakness Physical Exam Triage Information Reviewed: Yes Appearance: Well-Appearing Vital Signs: Initial Vital Signs Temp 98.5 F 06/23/18 14:20 Pulse 72 06/23/18 14:20 Resp 18 06/23/18 14:20 BP 125/76 06/23/18 14:20 Pulse Ox 100 06/23/18 14:20 Vital Signs Reviewed: Yes ENT: Positive: Pharyngeal erythema, TMs normal, Tonsillar exudate, Uvula midline. Negative: Tonsillar swelling Neck: Positive: Supple, Tenderness @ - L ant. cerv. chain., Enlarged Nodes @ - L ant. cerv. chain. Respiratory Exam: Normal Cardiovascular Exam: Normal Neurological: Positive: Alert Skin: Negative: Rashes Throat Pain/Nasal Course/Dx - Course Assessment/Plan: worsening pharyngitis and was recently here on 06/18. tx'd w/ amox but sore throat cont. she noticed rawness in throat. today rapid strep neg but sending for cx. will also r/o mono. vitals good, exam significant for oropharyngeal erythema, exudates, and some pharyngeal irritation. could also be viral etiology. - Differential Dx/Diagnosis Differential Diagnosis/HQI/PQRI: Influenza, Pharyngitis, URI Provider Diagnosis: Pharyngitis Discharge - Sign-Out/Discharge Documenting (check all that apply): Patient Departure All imaging exams completed and their final reports reviewed: No Studies - Discharge Plan Condition: Good Disposition: HOME Patient Education Materials: Pharyngitis (ED) Referrals: Kranthi Gusman MD [Primary Care Provider] - Additional Instructions: please follow up with your pcp if symptoms persist. continue amoxicillin to completion. - Billing Disposition and Condition Condition: GOOD Disposition: Home
[2018-06-25 13:31] LABS: EBV Capsid Ag IgG Ab Positive (Negative); EBV Capsid Ag IgM Ab Negative (Negative); Epstein-Barr Nuclear Antigen Positive (Negative)
--- NOTE | 2018-06-27 07:09 | UC ---
- Progress Note Progress Note: please notify pt staph grew out of thoroat culture if still symptomatic take keflex 500mg 4x day (#28) eRxed Course/Dx - Diagnoses Provider Diagnoses: Pharyngitis Discharge - Sign-Out/Discharge Documenting (check all that apply): Post-Discharge Follow Up All imaging exams completed and their final reports reviewed: No Studies - Discharge Plan Condition: Good Disposition: HOME Prescriptions: Cephalexin CAP* [Keflex CAP*] 500 mg PO QID #28 cap Patient Education Materials: Pharyngitis (ED) Referrals: Kranthi Gusman MD [Primary Care Provider] - Additional Instructions: please follow up with your pcp if symptoms persist. continue amoxicillin to completion. - Billing Disposition and Condition Condition: GOOD Disposition: Home
== END 2018-06-23 15:16 | disposition home or self-care (01) ==
LOC: UCCORT 14:00
DX: J02.9 Acute pharyngitis, unspecified (principal); R19.7 Diarrhea, unspecified; Z91.030 Bee allergy status; Z91.09 Other allergy status, other than to drugs and biological substances
CPT/HCPCS: 36415; 86308; 86664; 86665; 87070; 87077; 87186; 87651; 99211; G0463

== ENCOUNTER 2018-10-18 12:55 | Emergency (ER) | payer OTHER ==
[2018-10-18 14:19] VITALS: BP 110/82
--- NOTE | 2018-10-18 15:00 | UC ---
UC General HPI - HPI Summary HPI Summary: PER TRIAGE, Pt has had a scratchy/sore throat since last week. Pt states she has been losing her voice intermittently, L side of throat hurst more than R, L ear pain/fullness, dizziness. Pt denies fever and chills. Pt notes some sinus congestion and post nasal drip. Some chest congestion, pt has hx of asthma and felt she needed to use her inhaler more. Dizziness with position changes and resolves with rest. No TOURE for neuralgic deficits. - History of Current Complaint Chief Complaint: UCGeneralIllness Stated Complaint: ST Time Seen by Provider: 10/18/18 14:35 Hx Obtained From: Patient Hx Last Menstrual Period: 09/19/18 Onset/Duration: Gradual Onset Timing: Constant Pain Intensity: 2 Associated Signs & Symptoms: Negative: Chest Pain, Fever, Headache - Allergy/Home Medications Allergies/Adverse Reactions: Allergies Allergy/AdvReac Type Severity Reaction Status Date / Time gluten Allergy Severe TOURE, Verified 10/18/18 14:19 constipation, acne Adhesive Tape Allergy Intermediate SMALL RASH Verified 10/18/18 14:19 AROUND TAPE BEES Allergy Severe Swelling Uncoded 10/18/18 14:19 ENVIRONMENTAL Allergy Severe runny Uncoded 10/18/18 14:19 nose, itchy throat, ears PMH/Surg Hx/FS Hx/Imm Hx - Additional Past Medical History Additional PMH: allergies Respiratory History: Asthma - Surgical History Surgical History: Yes Surgery Procedure, Year, and Place: Kidney Stones Removed. Tonsillectomy,AND 2016 TONSIL REMNENT REMOVED. wisdom teeth. Thyroidectomy and removal of 3 out of 4 parathyroid glands. LYMPH NODE REMOVAL LEFT JAW. CYST REMOVED FROM FINGER -Lt MIDDLE AND LEFT RING FINGERS. RIGHT CTR, AND CYST REMOVAL RIGHT MID FINGER. bilat carpal tunnel. mastopexy (breast lift & augmentation) 09/21/2018 - Family History Known Family History: Positive: Cardiac Disease, Hypertension, Diabetes Negative: Respiratory Disease - Social History Occupation: Employed Full-time Alcohol Use: Occasionally Substance Use Type: None Smoking Status (MU): Never Smoked Tobacco Have You Smoked in the Last Year: No - Immunization History Most Recent Influenza Vaccination: FALL 2015 Vaccination Up to Date: Yes Review of Systems All Other Systems Reviewed And Are Negative: Yes Constitutional: Negative: Fever ENT: Positive: Sore Throat, Ear Ache, Sinus Congestion Respiratory: Positive: Shortness Of Breath - with stair climbing, Cough Cardiovascular: Negative: Palpitations, Chest Pain Neurological: Negative: Headache, Weakness, Paresthesia, Numbness Physical Exam Triage Information Reviewed: Yes Appearance: Well-Appearing Vital Signs: Initial Vital Signs Temp 99.3 F 10/18/18 14:11 Pulse 72 10/18/18 14:11 Resp 18 10/18/18 14:11 BP 110/82 10/18/18 14:11 Pulse Ox 100 10/18/18 14:11 Vital Signs Reviewed: Yes Eyes: Positive: Conjunctiva Clear, Other: - PERRL, EOMI ENT: Positive: Pharyngeal erythema, Nasal congestion, TMs normal, Hoarse voice, Uvula midline. Negative: Nasal drainage, Trismus, Muffled voice, Sinus tenderness Neck: Positive: Supple, Tenderness @ - peritonsilar nodes, Enlarged Nodes @ - peritonsilar nodes Respiratory: Positive: Lungs clear, No respiratory distress, Decreased breath sounds. Negative: Crackles, Rhonchi, Wheezing Cardiovascular: Positive: RRR, No Murmur Abdomen Description: Positive: Nontender Bowel Sounds: Positive: Present Musculoskeletal: Positive: ROM Intact Neurological: Positive: Other: - A&Ox3. CN 2-12 grossly intact. steady gait. Psychological: Positive: Age Appropriate Behavior Skin Exam: Normal Skin: Negative: Rashes Diagnostics - Laboratory Lab Results: RAPID STREP=NEG Course/Dx - Differential Dx - Multi-Symptom Differential Diagnoses: Other - rapid strep=neg. no concern for central vertigo. will cover for presumptive bacterial infection given hx of illness x 1 week and worsening. pt agrees to use rescue inhaler 2 puffs every 6 hours. - Diagnoses Provider Diagnosis: URI (upper respiratory infection), Laryngitis, Asthma, Dizziness Discharge - Sign-Out/Discharge Documenting (check all that apply): Patient Departure All imaging exams completed and their final reports reviewed: No Studies - Discharge Plan Condition: Stable Disposition: HOME Prescriptions: Azithromycin TAB* [Zithromax TAB (Z-TAMMY) 250 mg #6 tabs] 2 tab PO .TODAY, THEN 1 DAILY #1 tammy Meclizine TAB* [Antivert 12.5 TAB*] 25 mg PO TID PRN #10 tab MDD 3 PRN Reason: Dizziness predniSONE [Prednisone 20 MG TAB] 40 mg PO DAILY 3 Days #6 tablet Patient Education Materials: Laryngitis (ED), Upper Respiratory Infection (DC) , Dizziness (ED) Referrals: Kranthi Gusman MD [Primary Care Provider] - 6 Days - Billing Disposition and Condition Condition: STABLE Disposition: Home
== END 2018-10-18 15:13 | disposition home or self-care (01) ==
LOC: UCCORT 12:55
DX: J06.9 Acute upper respiratory infection, unspecified (principal); J04.0 Acute laryngitis; J45.909 Unspecified asthma, uncomplicated; R42 Dizziness and giddiness
CPT/HCPCS: 87651; 99212; G0463

== ENCOUNTER 2019-02-01 12:13 | Emergency (ER) | payer OTHER ==
[2019-02-01 12:34] VITALS: BP 124/74
--- NOTE | 2019-02-01 13:07 | UC ---
General HPI - HPI Summary HPI Summary: PER TRIAGE, General malaise started three days ago. Headache, intermittent dizziness, bilateral ear "feel full", facial pressure, head congestion (mostly in the morning), PND, productive cough, shortness of breath (inhaler "helps a little bit"), chest "heaviness", and near posttussive emesis in the mornings for two days. No known fever. [ End ] No cp. Some SOB. + hx asthma. dizziness occurs with position changes. no lightheaded or syncope. - History of Current Complaint Chief Complaint: UCRespiratory Stated Complaint: flu like symp Time Seen by Provider: 02/01/19 12:59 Hx Obtained From: Patient Hx Last Menstrual Period: ~01/16/19 Onset/Duration: Gradual Onset Timing: Constant Pain Intensity: 2 Associated Signs & Symptoms: Negative: Fever - Allergy/Home Medications Allergies/Adverse Reactions: Allergies Allergy/AdvReac Type Severity Reaction Status Date / Time gluten Allergy Severe TOURE, Verified 02/01/19 12:28 constipation, acne Adhesive Tape Allergy Intermediate SMALL RASH Verified 02/01/19 12:28 AROUND TAPE bee venom protein (honey bee) Allergy Swelling Verified 02/01/19 12:28 ENVIRONMENTAL Allergy Severe runny Uncoded 02/01/19 12:28 nose, itchy throat, ears Home Medications: Home Medications Levothyroxine Sodium [Tirosint] 125 mcg PO QAM 02/01/19 [History Confirmed 02/01] PMH/Surg Hx/FS Hx/Imm Hx Endocrine History: Thyroid Disease Respiratory History: Asthma Psychological History: Depression - Surgical History Surgical History: Yes Surgery Procedure, Year, and Place: Kidney Stones Removed. Tonsillectomy,AND 2016 TONSIL REMNENT REMOVED. wisdom teeth. Thyroidectomy and removal of 3 out of 4 parathyroid glands. LYMPH NODE REMOVAL LEFT JAW. CYST REMOVED FROM FINGER -Lt MIDDLE AND LEFT RING FINGERS. RIGHT CTR, AND CYST REMOVAL RIGHT MID FINGER. bilat carpal tunnel. mastopexy (breast lift & augmentation) 09/21/2018 - Family History Known Family History: Positive: Cardiac Disease, Hypertension, Diabetes Negative: Respiratory Disease - Social History Occupation: Employed Full-time Alcohol Use: Occasionally Substance Use Type: None Smoking Status (MU): Never Smoked Tobacco Have You Smoked in the Last Year: No - Immunization History Most Recent Influenza Vaccination: FALL 2015 Vaccination Up to Date: Yes Review of Systems All Other Systems Reviewed And Are Negative: No Constitutional: Negative: Fever Eyes: Negative: Eye Redness Cardiovascular: Negative: Palpitations, Chest Pain Musculoskeletal: Positive: Myalgia Physical Exam Triage Information Reviewed: Yes Appearance: Well-Appearing Vital Signs: Initial Vital Signs Temp 98.6 F 02/01/19 12:26 Pulse 76 02/01/19 12:26 Resp 18 02/01/19 12:26 BP 124/74 02/01/19 12:26 Pulse Ox 100 02/01/19 12:26 Vital Signs Reviewed: Yes Eyes: Positive: Conjunctiva Clear ENT: Positive: Pharynx normal, Nasal congestion, TMs normal. Negative: Nasal drainage, Sinus tenderness Neck: Positive: Supple, Nontender, No Lymphadenopathy Respiratory: Positive: No respiratory distress, Decreased breath sounds. Negative: Crackles, Rhonchi, Wheezing Cardiovascular: Positive: RRR, No Murmur Abdomen Description: Positive: Nontender Musculoskeletal: Positive: ROM Intact Neurological: Positive: Other: - A&Ox3. CN 2-12 grossly intact. steady gait. Psychological: Positive: Age Appropriate Behavior Skin Exam: Normal Skin: Negative: Rashes Course/Dx - Differential Dx - Multi-Symptom Differential Diagnoses: Other - antibiotic not indicated. neuro exam reassuring. hx/pe c/w peripheral vertigo. - Diagnoses Provider Diagnosis: URI (upper respiratory infection), Dizziness, Asthma Discharge ED - Sign-Out/Discharge Documenting (check all that apply): Patient Departure All imaging exams completed and their final reports reviewed: No Studies - Discharge Plan Condition: Stable Disposition: HOME Prescriptions: Meclizine TAB* [Antivert 12.5 TAB*] 12.5 mg PO TID PRN #10 tab PRN Reason: Dizziness predniSONE TAB* [Deltasone 20 MG TAB*] 40 mg PO DAILY 5 Days #10 tab Patient Education Materials: Upper Respiratory Infection (DC), Dizziness (ED) Referrals: Kranthi Gusman MD [Primary Care Provider] - 7 Days Additional Instructions: USE ALBUTEROL INHALER 2 PUFFS EVERY 6 HOURS - Billing Disposition and Condition Condition: STABLE Disposition: Home
== END 2019-02-01 13:16 | disposition home or self-care (01) ==
LOC: UCCORT 12:13
DX: J06.9 Acute upper respiratory infection, unspecified (principal); R42 Dizziness and giddiness; J45.909 Unspecified asthma, uncomplicated; E07.9 Disorder of thyroid, unspecified; Z91.030 Bee allergy status; Z91.048 Other nonmedicinal substance allergy status
CPT/HCPCS: 99212; G0463

== ENCOUNTER 2019-04-15 15:57 | Emergency (ER) | payer OTHER ==
--- OUTSIDE RECORDS SUMMARY | 2019-04-15 16:09 | XMS REPORT | Continuity of Care Document ---
:1985 Author Organization [facility] Care Team Providers Name Role Phone KERMIT NAPIER Admitting Physician KERMIT NAPIER Attending Physician NADEEM PEARL Primary Care Physician Allergies and Intolerances No Allergy Data in the System Medications No Known Medications Medications At Time Of Discharge No data in the system Problems No Data in the system Procedures No data in the system Results Laboratory Results Order: A1C Specimen Source: Body Site: Legend: (G,H) = High, (GG,HH,CH,#H) = Above High Threshold, (#,L) = Low, (##,CL, #L,LL) = Below Low Threshold, (C,CC,CA,#A,A) = Abnormal LOINC Test Result Flag Range Units Date 21626-2 1Hgb A1c Bld 5.1 4.8-6.0 % 01/03/2019 09:35 Performing Lab Footnotes:[facility] - [id number] - [address] [place] [address] NOELLE ALEXIS Order: CBC DIFF Specimen Source: Body Site: Legend: (G,H) = High, (GG, HH,CH,#H) = Above High Threshold, (#,L) = Low, (##,CL,#L,LL) = Below Low Threshold, (C,CC,CA,#A,A) = Abnormal LOINC Test Result Flag Range Units Date 6690-2 1WBC # Bld Auto 4.7 L 4.8-10.8 K/uL 01/03/2019 09:35 37320-6 1RBC # Bld 4.08 L 4.20-5.40 M/uL 01/03/2019 09:35 718-7 1Hgb Bld-mCnc 11.9 L 12.0-16.0 gm/dL 01/03/2019 09:35 4544-3 1Hct VFr Bld Auto 37.7 36.0-48.0 % 01/03/2019 09:35 787-2 1MCV RBC Auto 92.4 80.0-100.0 fL 01/03/2019 09:35 77455-8 1MCHC RBC-mCnc 31.7 30.0-36.5 % 01/03/2019 09:35 86890-3 1MCH RBC Qn 29.3 27.0-34.0 pg 01/03/2019 09:35 77618-7 1RDW RBC 10.9 L 11.0-15.0 % 01/03/2019 09:35 777-3 1Platelet # Bld Auto 305 130-450 K/uL 01/03/2019 09:35 05941-1 1PMV Bld Auto 6.4 6.0-12.0 fL 01/03/2019 09:35 751-8 1Neutrophils # Bld Auto 47 37-80 % 01/03/2019 09:35 51234-4 1Lymphocytes NFr Bld 43 10-50 % 01/03/2019 09:35 5905-5 1Monocytes NFr Bld Auto 6 0-12 % 01/03/2019 09:35 97363-7 1Eosinophil # Bld 2 <=8 % 01/03/2019 09:35 704-7 1Basophils # Bld Auto 1 <=3 % 01/03/2019 09:35 11129-3 1Neutrophils # Bld 2.2 1.8-8.6 K/uL 01/03/2019 09:35 731-0 1Lymphocytes # Bld Auto 2.0 0.5-5.0 K/uL 01/03/2019 09:35 742-7 1Monocytes # Bld Auto 0.3 0.0-1.3 K/uL 01/03/2019 09:35 65848-3 1Eosinophil # Bld 0.1 0.0-0.9 K/uL 01/03/2019 09:35 704-7 1Basophils # Bld Auto 0.1 0.0-0.3 K/ul 01/03/2019 09:35 Performing Lab Footnotes:[facility] - [id number] - [address] [place] [address] NOELLE Simon NAHOMID1 Order: COMPREHENSIVE PANEL Specimen Source: Body Site: Legend: (G,H) = High, (GG,HH,CH,#H) = Above High Threshold, (#,L) = Low, (##,CL,#L,LL) = Below Low Threshold, (C,CC,CA,#A,A) = Abnormal LOINC Test Result Flag Range Units Date 2951-2 1Sodium SerPl-sCnc 138 136-145 mmol/L 01/03/2019 09:35 2823-3 1Potassium SerPl-sCnc 4.1 3.5-5.2 mmol/L 01/03/2019 09:35 5-0 1Chloride SerPl-sCnc 105 100-108 mmol/L 01/03/2019 09:35 8-9 1CO2 SerPl-sCnc 25 21-32 mmol/L 01/03/2019 09:35 2345-7 1Glucose SerPl-mCnc 78 70-100 mg/dL 01/03/2019 09:35 3094-0 1BUN SerPl-mCnc 11 7-21 mg/dL 01/03/2019 09:35 2160-0 1Creat SerPl-mCnc 0.8 0.6-1.3 mg/dL 01/03/2019 09:35 Interpretive Skyla: 1Normal Kidney Function or Mild Disease - GFR >OR= 60 Chronic Kidney Disease - GFR 15-59 Renal Failure - GFR < 15 GFR not calculated on patients under 18 years of age. Calculated (estimated) GFR is based on the MDRD Study equation, which assumes a steady state for creatinine. Estimated GFR may not be appropriate for medication dosing. 81743-0 1Ca-I SerPl-mCnc 8.7 8.5-10.8 mg/dL 01/03/2019 09:35 25490-9 1GFR/BSA.pred SerPl-ArVRat >60 01/03/2019 09:35 39105-4 1Bilirub Bld-mCnc 1.1 0.0-1.2 mg/dL 01/03/2019 09:35 2885-2 1Prot SerPl-mCnc 7.0 6.4-8.2 gm/dL 01/03/2019 09:35 1751-7 1Albumin SerPl-mCnc 4.6 3.4-4.8 gm/dL 01/03/2019 09:35 6768-6 1ALP SerPl-cCnc 56 40-150 U/L 01/03/2019 09:35 1742-6 1ALT SerPl-cCnc 12 0-55 U/L 01/03/2019 09:35 1920-8 1AST SerPl-cCnc 22 5-37 U/L 01/03/2019 09:35 Performing Lab Footnotes:[facility] - [id number] - [address] [place] [address] NOELLE ALEXIS Order: IRON Specimen Source: Body Site: Legend: (G,H) = High, (GG,HH,CH ,#H) = Above High Threshold, (#,L) = Low, (##,CL,#L,LL) = Below Low Threshold, ( C,CC,CA,#A,A) = Abnormal LOINC Test Result Flag Range Units Date 2498-4 1Iron SerPl-mCnc 102 50-175 ug/dL 01/03/2019 09:35 Performing Lab Footnotes:[facility] - [id number] - [address] [place] [address] NOELLE [id number] Order: TSH Specimen Source: Body Site: Legend: (G,H) = High, (GG,HH,CH, #H) = Above High Threshold, (#,L) = Low, (##,CL,#L,LL) = Below Low Threshold, (C ,CC,CA,#A,A) = Abnormal LOINC Test Result Flag Range Units Date 3016-3 1TSH SerPl-aCnc 1.82 0.34-4.82 uIU/mL 01/03/2019 09:35 Performing Lab Footnotes:[facility] - [id number] - [address] [place] [address] NOELLE [id number] Order: VIT D 25 HYDROXY Specimen Source: Body Site: Legend: (G,H) = High, (GG,HH,CH,#H) = Above High Threshold, (#,L) = Low, (##,CL,#L,LL) = Below Low Threshold, (C,CC,CA,#A,A) = Abnormal LOINC Test Result Flag Range Units Date 53104-5 1Vit D+metab SerPl-mCnc 32 30-95 NG/ML 01/03/2019 09:35 Interpretive 1VITAMIN D STATUS VITAMIN D Level Skyla: DEFICIENCY <20 NG/ML INSUFFICIENCY 20-30 NG/ML SUFFICIENCY 31-96 NG/ML POTENTIAL TOXICITY >96 NG/ML Performing Lab Footnotes:[facility] - [id number] - [address] [place] [address] NOELLE ALEXIS Order: VITAMIN B12 Specimen Source: Body Site: Legend: (G,H) = High, ( GG,HH,CH,#H) = Above High Threshold, (#,L) = Low, (##,CL,#L,LL) = Below Low Threshold, (C,CC,CA,#A,A) = Abnormal LOINC Test Result Flag Range Units Date 2132-01 1Vit B12 SerPl-nc 881 516-7171 pg/mL 01/03/2019 09:35 Performing Lab Footnotes:[facility] - [id number] - [address] [place] [address] NOELLE ALEXIS Reference Laboratory Results Order: THYROGLOBULIN ( TgAb & TG) [SO] Specimen Source: Body Site: [facility] Code Test Result Flag Range Units Date 8098-6 1Thyroglobulin Ab <1.0 0.0-0.9 IU/mL 01/03/2019 9:35:00 AM Note: Thyroglobulin Antibody measured by Mg Medora Methodology 3013-0 1Thyroglobulin <0.1 L 1.5-38.5 ng/mL 01/03/2019 9:35:00 AM Note: According to the National Academy of Clinical [employer]ochemistry, the reference interval for Thyroglobulin (TG) should be related to euthyroid patients and not for patients who underwent thyroidectomy. TG reference intervals for these patients depend on the residual mass of the thyroid tissue left after surgery. Establishing a post-operative baseline is recommended. The assay limit of quantitation is 0.1 ng/mL . Thyroglobulin measured by Mg Duncan Immunometric Assay Performing Lab Footnotes:[facility] [address] [place], [place] [id number] KATHY Sanchez REYES1 Social History Code Code System Social History Observation Description Dates Observed [id number] 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
[2019-04-15 16:15] VITALS: BP 108/77
--- NOTE | 2019-04-15 16:41 | UC ---
Throat Pain/Nasal Eagle HPI - HPI Summary HPI Summary: 33-year-old female with a sore throat and just feeling terrible over the past 2 days. Today she started having a slight fever with some body aches and nasal congestion. - History of Current Complaint Chief Complaint: UCRespiratory Stated Complaint: ACHY,ST,LOW ENERGY Time Seen by Provider: 04/15/19 16:18 Hx Obtained From: Patient Hx Last Menstrual Period: 04/13/19-now ?: No Onset/Duration: Gradual Onset Severity: Mild Pain Intensity: 5 Cough: None Associated Signs & Symptoms: Positive: Fever - Allergies/Home Medications Allergies/Adverse Reactions: Allergies Allergy/AdvReac Type Severity Reaction Status Date / Time gluten Allergy Severe TOURE, Verified 04/15/19 16:11 constipation, acne Adhesive Tape Allergy Intermediate SMALL RASH Verified 04/15/19 16:11 AROUND TAPE bee venom protein (honey bee) Allergy Swelling Verified 04/15/19 16:11 ENVIRONMENTAL Allergy Severe runny Uncoded 04/15/19 16:11 nose, itchy throat, ears PMH/Surg Hx/FS Hx/Imm Hx Previously Healthy: Yes Endocrine History: Diabetes - Prediabetes. Cancer History: Other - Thyroid cancer. - Surgical History Surgical History: Yes Surgery Procedure, Year, and Place: Kidney Stones Removed. Tonsillectomy,AND 2016 TONSIL REMNENT REMOVED. wisdom teeth. Thyroidectomy and removal of 3 out of 4 parathyroid glands. LYMPH NODE REMOVAL LEFT JAW. CYST REMOVED FROM FINGER -Lt MIDDLE AND LEFT RING FINGERS. RIGHT CTR, AND CYST REMOVAL RIGHT MID FINGER. bilat carpal tunnel. mastopexy (breast lift & augmentation) 09/21/2018 - Family History Known Family History: Positive: Cardiac Disease, Hypertension, Diabetes Negative: Respiratory Disease - Social History Occupation: Employed Full-time Lives: With Family Alcohol Use: Occasionally Substance Use Type: None Smoking Status (MU): Never Smoked Tobacco Have You Smoked in the Last Year: No - Immunization History Most Recent Influenza Vaccination: FALL 2015 Vaccination Up to Date: Yes Review of Systems All Other Systems Reviewed And Are Negative: Yes Constitutional: Positive: Fever, Chills, Fatigue ENT: Positive: Sore Throat, Nasal Discharge Is Patient Immunocompromised?: No Physical Exam Triage Information Reviewed: Yes Appearance: Well-Appearing, No Pain Distress, Well-Nourished Vital Signs: Initial Vital Signs Temp 98.7 F 04/15/19 16:12 Pulse 78 04/15/19 16:12 Resp 15 04/15/19 16:12 BP 108/77 04/15/19 16:12 Pulse Ox 100 04/15/19 16:12 Vital Signs Reviewed: Yes Eyes: Positive: Conjunctiva Clear ENT: Positive: Pharyngeal erythema, Nasal drainage - Clear nasal coryza., TMs normal, Uvula midline Neck: Positive: Supple, Nontender, Enlarged Nodes @ - Very minimal right tonsillar lymph node enlargement. Respiratory: Positive: Lungs clear, Normal breath sounds, No respiratory distress, No accessory muscle use Cardiovascular: Positive: RRR, No Murmur, Pulses Normal, Brisk Capillary Refill Abdomen Description: Positive: Nontender, No Organomegaly, Soft. Negative: CVA Tenderness (R), CVA Tenderness (L), Distended, Guarding, Hepatomegaly, McBurney' s Point Tenderness, Splenomegaly Bowel Sounds: Positive: Present Musculoskeletal Exam: Normal Neurological Exam: Normal Psychological Exam: Normal Skin Exam: Normal Throat Pain/Nasal Course/Dx - Course Course Of Treatment: Patient is comfortable here. Rapid strep test was positive. I'm going to treat her with amoxicillin 875 mg by mouth twice a day 10 days here and she is to rest and increase fluids and may alternate Motrin every 8 hours and Tylenol every 4 hours. - Differential Dx/Diagnosis Provider Diagnosis: Strep pharyngitis Discharge ED - Sign-Out/Discharge Documenting (check all that apply): Patient Departure All imaging exams completed and their final reports reviewed: No Studies - Discharge Plan Condition: Fair Disposition: HOME Prescriptions: Amoxicillin PO (*) [Amoxicillin 875 MG (*)] 875 mg PO BID 10 Days #20 tab Patient Education Materials: Strep Throat (DC) Referrals: Kranthi Gusman MD [Primary Care Provider] - Additional Instructions: Increase fluids, change her toothbrush in 24 hours, may take Tylenol every 4 hours and Motrin every 8 hours for pain or fever. Rest. Follow-up with your primary care provider if no improvement in 3 or 4 days. - Billing Disposition and Condition Condition: FAIR Disposition: Home
== END 2019-04-15 16:41 | disposition home or self-care (01) ==
LOC: UCCORT 15:57
DX: J02.0 Streptococcal pharyngitis (principal); E11.9 Type 2 diabetes mellitus without complications; R53.83 Other fatigue; J34.89 Other specified disorders of nose and nasal sinuses; Z85.850 Personal history of malignant neoplasm of thyroid; Z91.018 Allergy to other foods; Z91.09 Other allergy status, other than to drugs and biological substances; Z91.030 Bee allergy status
CPT/HCPCS: 87651; 99212; G0463

== ENCOUNTER 2019-06-10 17:57 | Emergency (ER) | payer OTHER ==
--- NOTE | 2019-06-10 18:06 | UC ---
Throat Pain/Nasal Eagle HPI - HPI Summary HPI Summary: 34 y/o female presents to the urgent care c/o headache, dry cough, body aches and nasal congestion w/ clear nasal discharge for the past 2 days. Her 2 children were Dx w/ Influenza B 2 days ago and are taken Tamiflu PO. This morning she woke up w/ sore throat, back pain when she coughs. She has PMHX of asthma and now she feels mild SOB. She has not used her albuterol inhaler yet. Pt states pain w/ swallowing is 4/10. She has not taken anything to alleviate symptoms. Pt feels fatigue and denies dizziness, weakness, rash, TOURE, chest pain , abdominal pain, N/V/d. - History of Current Complaint Stated Complaint: COUGH/SORE THROAT/WEAKNESS Time Seen by Provider: 06/10/19 18:04 Hx Obtained From: Patient Hx Last Menstrual Period: 04/13/19-now ?: No Onset/Duration: Gradual Onset, Lasting Days - 2 days, Still Present, Worse Since - today Severity: Moderate Pain Intensity: 4 - sore throat Pain Scale Used: 0-10 Numeric Cough: Nonproductive Associated Signs & Symptoms: Positive: Sinus Discomfort, Nasal Discharge - clear. Negative: Dysphagia, Wheezing, Fever Related History: Other (Noted In Comments) - 2 childrens Dx w/ influenza B - Epiglottits Risk Factors Epiglottis Risk Factors: Negative - Allergies/Home Medications Allergies/Adverse Reactions: Allergies Allergy/AdvReac Type Severity Reaction Status Date / Time gluten Allergy Severe TOURE, Verified 06/10/19 18:13 constipation, acne Adhesive Tape Allergy Intermediate SMALL RASH Verified 06/10/19 18:13 AROUND TAPE bee venom protein (honey bee) Allergy Swelling Verified 06/10/19 18:13 ENVIRONMENTAL Allergy Severe runny Uncoded 06/10/19 18:13 nose, itchy throat, ears PMH/Surg Hx/FS Hx/Imm Hx Previously Healthy: Yes Endocrine History: Hypothyroidism Respiratory History: Asthma GI/ History: Gastroesophageal Reflux - Surgical History Surgical History: Yes Surgery Procedure, Year, and Place: Kidney Stones Removed. Tonsillectomy,AND 2016 TONSIL REMNENT REMOVED. wisdom teeth. Thyroidectomy and removal of 3 out of 4 parathyroid glands. LYMPH NODE REMOVAL LEFT JAW. CYST REMOVED FROM FINGER -Lt MIDDLE AND LEFT RING FINGERS. RIGHT CTR, AND CYST REMOVAL RIGHT MID FINGER. bilat carpal tunnel. mastopexy (breast lift & augmentation) 09/21/2018 - Family History Known Family History: Positive: Cardiac Disease, Hypertension, Diabetes Negative: Respiratory Disease - Social History Occupation: Employed Full-time Lives: With Family Alcohol Use: Occasionally Substance Use Type: None Smoking Status (MU): Never Smoked Tobacco Have You Smoked in the Last Year: No - Immunization History Most Recent Influenza Vaccination: FALL 2015 Vaccination Up to Date: Yes Review of Systems All Other Systems Reviewed And Are Negative: Yes Constitutional: Positive: Chills, Fatigue, Other - body ahces Skin: Positive: Negative Eyes: Positive: Negative ENT: Positive: Sore Throat, Nasal Discharge - clear, Sinus Congestion Respiratory: Positive: Cough - ry Cardiovascular: Positive: Negative Gastrointestinal: Positive: Negative Genitourinary: Positive: Negative Motor: Positive: Negative Neurovascular: Positive: Negative Musculoskeletal: Positive: Myalgia Neurological: Positive: Negative Psychological: Positive: Negative Is Patient Immunocompromised?: No Physical Exam - Summary Physical Exam Summary: VITAL SIGNS: Reviewed. GENERAL: Patient is a well developed and nourished female who is sitting comfortably in the examining table. Patient is not in any acute respiratory distress. HEAD AND FACE: No signs of trauma. No ecchymosis, hematomas or skull depressions. No sinus tenderness. EYES: PERRLA, EOMI x 2, No injected conjunctiva, no nystagmus. No photophobia. EARS: Hearing grossly intact. Ear canals and tympanic membranes are within normal limits. MOUTH: Positive pharynx with mild erythema, no exudates, No B/L tonsillar enlargement , no exudate. Uvula in midline. edematous nasal mucosa w/ clear nasal discharge, clear PND NECK: Supple, trachea is midline, Positive anterior cervical lymphadenopathy, no JVD, no carotid bruit, no c-spine tenderness, neck with full ROM. No meningeal signs, no Kernig's or brudzinskis signs. CHEST: Symmetric, no tenderness at palpation LUNGS: Clear to auscultation bilaterally. No wheezing or crackles. CVS: Regular rate and rhythm, S1 and S2 present, no murmurs or gallops appreciated. ABDOMEN: Soft, non-tender. No signs of distention. No rebound no guarding, and no masses palpated. Bowel sounds are normal. EXTREMITIES: FROM in all major joints, no edema, no cyanosis or clubbing. NEURO: Alert and oriented x 3. No acute neurological deficits. Pt follows commands. SKIN: Dry and warm Triage Information Reviewed: Yes Throat Pain/Nasal Course/Dx - Course Course Of Treatment: 34 y/o female presents to the urgent care c/o headache, dry cough, body aches and nasal congestion w/ clear nasal discharge for the past 2 days. Her 2 children were Dx w/ Influenza B 2 days ago and are taken Tamiflu PO. This morning she woke up w/ sore throat, back pain when she coughs. She has PMHX of asthma and now she feels mild SOB. She has not used her albuterol inhaler yet. Pt states pain w/ swallowing is 4/10. She has not taken anything to alleviate symptoms. Pt feels fatigue and denies dizziness, weakness, rash, TOURE, chest pain , abdominal pain, N/V/d. Hx obtained. Pt with URI and mild wheezing on examination. Rapid strep ordered, result: negative.Influenza A&B ordered: result: Influenza B positive. Pt givne Duoneb treatment at the clinic to alleviate whhezing by nurse. Pt tolerated well treatment and wheezing cleared. Pt Rx Tamiflu and ibuprofen PO to alleviates symptoms. Advised to continue using her albuterol inhaler. Advised on hand washing and wear a mask to avoid spreading. Pt advised to rest, increase fluid intake, eat well and avoid strenuous exercise. If symptoms do not improve or worsen advised to return to the urgent care or f/u with her PCP for further evaluation and treatment. Pt understood and agreed w/ plan of care. - Differential Dx/Diagnosis Differential Diagnosis/HQI/PQRI: Influenza, Laryngitis, Mononucleosis, Pharyngitis, Sinusitis, Tonsillitis, URI Provider Diagnosis: Influenza B Discharge ED - Sign-Out/Discharge Documenting (check all that apply): Patient Departure - D/C home All imaging exams completed and their final reports reviewed: No Studies - Discharge Plan Condition: Stable Disposition: HOME Prescriptions: Albuterol HFA INHALER* [Ventolin HFA Inhaler*] 2 puff INH BID PRN #1 mdi PRN Reason: Wheezing Oseltamivir CAP* [Tamiflu CAP*] 75 mg PO BID #10 cap Patient Education Materials: Influenza (ED) Forms: *Work Release Referrals: Kranthi Gusman MD [Primary Care Provider] - 3 Days Additional Instructions: 1- Please take the full course of the antiviral to avoid resistance. Encourage hand washing and wear a mask to avoid spreading. 2-Please Ibuprofen PO q6-8hrs prn as instructed after meals to alleviate fever , and sore throat. Increase fluid intake, eat well, rest and avoid strenuous exercise 3- Use your albuterol inhaler to alleviate symptoms. 3-If symptoms do not improve or worsen please return to the urgent care or f/u with your PCP in 2 days for further evaluation and treatment. - Billing Disposition and Condition Condition: STABLE Disposition: Home
[2019-06-10 18:12] VITALS: BP 120/77
[2019-06-10] MEDS ORDERED: Albuterol/Ipratropium NEB.SOL* Albuterol 2.5 MG/Ipratropium 0.5 MG 3 ML INH ONE (18:27)
[2019-06-10 18:36] LABS: Influenza B Molecular POSITIVE (Negative)
== END 2019-06-10 19:04 | disposition home or self-care (01) ==
LOC: UCCORT 17:57
DX: J10.1 Influenza due to other identified influenza virus with other respiratory manifestations (principal); J45.909 Unspecified asthma, uncomplicated; Z91.018 Allergy to other foods; Z91.09 Other allergy status, other than to drugs and biological substances; Z91.030 Bee allergy status
CPT/HCPCS: 87651; 99212; A9270-GY; G0463